=== PATIENT | female | born 1990 | race Caucasian/White ===

== ENCOUNTER 2023-12-25 14:33 | Inpatient (IN) | payer OTHER, SELFPAY ==
[~2023-12-25] VITALS: Ht 167.6 cm; Wt 47.4 kg
[2023-12-25] MEDS: ACETAMINOPHEN 325 MG TAB PO ONE (15:50)
[2023-12-25 16:07] LABS: HEMATOCRIT 33.6 % (36.0-47.0); HEMOGLOBIN 10.1 g/dl (12.0-15.5); MEAN CORPUSCULAR HEMOGLOBIN 22.8 pg (27.0-33.0); MEAN CORPUSCULAR HGB CONC 30.1 g/dl (32.0-36.5); MEAN CORPUSCULAR VOLUME 75.8 fl (80.0-96.0); PLATELET COUNT, AUTOMATED 221 10^3/uL (150-450); RED BLOOD COUNT 4.43 10^6/uL (4.00-5.40); WHITE BLOOD COUNT 7.5 10^3/uL (4.0-10.0)
[2023-12-25 16:15] LABS: AMPHETAMINES LEVEL URINE NEGATIVE (NEGATIVE); BARBITURATES URINE NEGATIVE (NEGATIVE); BENZODIAZEPINES URINE NEGATIVE (NEGATIVE); COCAINE METABOLITE URINE NEGATIVE (NEGATIVE); METHADONE URINE NEGATIVE (NEGATIVE); OPIATES URINE NEGATIVE (NEGATIVE); PHENCYCLIDINE URINE NEGATIVE (NEGATIVE)
[2023-12-25 16:22] LABS: CANNABINOIDS URINE POSITIVE (NEGATIVE)
[2023-12-25 16:30] LABS: ETHYL ALCOHOL (ETHANOL) < 0.003 % (0.000-0.010)
[2023-12-25 16:32] LABS: ALBUMIN 3.7 G/DL (3.2-5.2); ALKALINE PHOSPHATASE 55 U/L (46-116); ALT/SGPT 11 U/L (7.0-40); AST/SGOT 10 U/L (<34); BILIRUBIN,DIRECT 0.2 MG/DL (<0.4); BILIRUBIN,TOTAL 0.4 MG/DL (0.3-1.2); BLOOD UREA NITROGEN 8 MG/DL (9-23); CALCIUM LEVEL 9.5 MG/DL (8.5-10.1); CARBON DIOXIDE LEVEL 24 MMOL/L (20-31); CHLORIDE LEVEL 111 MMOL/L (98-107); CREATININE FOR GFR 0.69 MG/DL (0.55-1.30); GLOMERULAR FILTRATION RATE > 60.0 (>60); GLUCOSE, FASTING 92 MG/DL (60-100); HCG, SERUM QUALITATIVE NEGATIVE (NEGATIVE); POTASSIUM SERUM 3.7 MMOL/L (3.5-5.1); SALICYLATE LEVEL < 3.0 MG/DL (<30); SODIUM LEVEL 140 MMOL/L (136-145); TOTAL PROTEIN 7.6 G/DL (5.7-8.2)
[2023-12-25] MEDS: METOCLOPRAMIDE INJ 10MG/2ML VIAL IM ONE (17:51)
[2023-12-25] MEDS: KETOROLAC 30 MG/ML 1ML VIAL IM ONE (17:51)
[2023-12-25] MEDS ORDERED: MAALOX 30 ML SUSP *UDC PO PRN (21:35)
[2023-12-25] MEDS ORDERED: MOM 30ML SUSPENSION UDC PO PRN (21:35)
[2023-12-25] MEDS ORDERED: IBUPROFEN 400MG TAB PO PRN (21:35)
[2023-12-25 22:30] VITALS: BP 105/55; TEMP 97.1; O2SAT 98
[2023-12-25] MEDS: traZODone 50 MG TAB PO PRN (23:10)
[2023-12-26 06:16] VITALS: BP 101/60; TEMP 97.4; O2SAT 97
[2023-12-26] MEDS: LIDOCAINE 5% (LIDODERM) PATCH TD SCH (09:44)
[2023-12-26] MEDS: FLUoxetine 20MG CAP PO SCH (12:01)
[2023-12-26 13:34] LABS: FERRITIN 3.9 NG/ML (7.3-270.7)
[2023-12-26 13:43] LABS: IRON (FE) 10 UG/DL (50-170); PERCENT SATURATION 2.8 % (13.2-45.0); TOTAL IRON BINDING CAPACITY 362 UG/DL (250-425)
[2023-12-26 13:44] LABS: FOLATE 14.9 NG/ML (>5.4); VITAMIN B12 LEVEL 475 PG/ML (211-911)
[2023-12-26] MEDS: ACETAMINOPHEN 325 MG TAB PO PRN (14:36)
[2023-12-26 14:45] VITALS: BP 129/73; TEMP 97.3; O2SAT 100
[2023-12-26 15:40] LABS: FREE T4 1.17 NG/DL (0.89-1.76)
[2023-12-26] MEDS: FAMOTIDINE 20 MG TAB PO SCH (20:11)
[2023-12-26] MEDS: FERROUS SULFATE 325MG TAB PO SCH (20:12)
[2023-12-26] MEDS: GABAPENTIN 100 MG CAP PO SCH (20:12)
[2023-12-27 06:11] VITALS: BP 112/58; TEMP 97.4; O2SAT 98
[2023-12-27 16:53] VITALS: BP 116/62; TEMP 99.2
[2023-12-28] MEDS: diphenhydrAMINE 25MG CAP PO PRN (00:16)
[2023-12-28 15:20] VITALS: BP 118/58; TEMP 98.9; O2SAT 97
[2023-12-28] MEDS: MIRTAZAPINE 15 MG TAB PO SCH (20:15)
[2023-12-29 06:41] VITALS: BP 116/62; TEMP 98; O2SAT 99
[2023-12-29] MEDS ORDERED: LIDO5TD TD (10:33)
[2023-12-29] MEDS ORDERED: FERR1TAB8 PO (10:33)
[2023-12-29] MEDS ORDERED: FAMO20TA PO (10:33)
[2023-12-29] MEDS ORDERED: FLUO-365 PO (10:33)
[2023-12-29] MEDS ORDERED: MIRT-10 PO (10:33)
[2023-12-29] MEDS ORDERED: GABA-1171 PO (10:33)
== END 2023-12-29 11:31 | disposition home or self-care (01) | DRG 754 ==
LOC: M ED 14:33 → M ED INP 21:32 → M PSY 22:00
PROVIDERS: ADMIT Psychiatry & Neurology Psychiatry; ATTEND Psychiatry & Neurology Psychiatry
DX: F32.A Depression, unspecified (principal); E43 Unspecified severe protein-calorie malnutrition; R45.851 Suicidal ideations; F17.290 Nicotine dependence, other tobacco product, uncomplicated; D50.9 Iron deficiency anemia, unspecified; Z68.1 Body mass index [BMI] 19.9 or less, adult; Z91.410 Personal history of adult physical and sexual abuse; Z81.8 Family history of other mental and behavioral disorders; Z91.030 Bee allergy status; Z91.013 Allergy to seafood; Z88.8 Allergy status to other drugs, medicaments and biological substances; Z63.79 Other stressful life events affecting family and household; Z83.3 Family history of diabetes mellitus